=== PATIENT | female | born 1955 | race Caucasian/White ===

== ENCOUNTER 2018-04-20 06:37 | Day surgery (SDC) | payer BC ==
[~2018-04-20 06:37] MED LIST: KETOROLAC TROMETHAMINE 0.45% 4 DROP/0.4 ML DROPERETTE OS PRN
[2018-04-20] MEDS ORDERED: MIDAZOLAM 2 MG/2 ML INJ ONE (06:48)
[2018-04-20] MEDS: BESIFLOXACIN HCL 0.6% OPH SUSP 5 ML BOTTLE OS PRN ×3 (06:56→08:21)
[2018-04-20] MEDS: TETRACAINE HCL 0.5% OPH SOLN 4 ML OS PRN ×3 (06:56→07:54)
[2018-04-20] MEDS: CYCLOPENTOLATE 0.2%/PHENYLEPHRINE 1% OPH SOLN 2 ML OS PRN ×3 (06:56→07:09)
[2018-04-20] MEDS: TROPICAMIDE 1% OPH SOLN 3 ML OS PRN ×3 (06:56→07:09)
[2018-04-20] MEDS ORDERED: EPINEPHRINE INJ/PF 1 MG/1 ML AMPULE ONE (07:13)
[2018-04-20] MEDS ORDERED: LIDOCAINE 1% INJ-PF (10 MG/ML) 30 ML SDV ONE (07:14)
[2018-04-20] MEDS ORDERED: CHONDR SU A NA/HYALUR INTRAOC KIT (SURGICARE) ONE (07:14)
[2018-04-20] MEDS ORDERED: LIDOCAINE 1%/PHENYLEPHRINE 1.5% 1 ML VIAL ONE (07:33)
--- NOTE | 2018-04-20 19:37 | [facility] OPERATIVE REPORT E ---
[facility] Operative Report NAME: JOSELINE TORRES AGE: 62Y DATE OF SURGERY: 04/20/2018 ROOM: PREOPERATIVE DIAGNOSIS: CATARACT LEFT EYE. POSTOPERATIVE DIAGNOSIS: CATARACT LEFT EYE. OPERATION: Cataract extraction with intraocular lens implant of the left eye with a toric multifocal lens. SURGEON: BINA HUERTA M.D. ANESTHESIA: Topical. COMPLICATIONS: None. ESTIMATED BLOOD LOSS: None. PROCEDURE: After appropriate consent was obtained and calculations made, the patient was brought back to the operating room where the patient was prepped and draped in sterile fashion. A lid speculum was placed and attention was directed to a paracentesis where a paracentesis blade made a small incision. Viscoelastic was then used to inflate the anterior chamber. Next a 2.4 mm incision was made with the paracentesis blade. A continuous capsulorhexis forceps of approximately 5 mm was done using a cystitome and capsulorhexis forceps. Hydrodissection was carried out to make the lens freely mobile and then a divide and conquer technique was used to remove the lens with a CDE of approximately 2.68. Following this, the remaining cortical material was removed with irrigation/aspiration. After this the patient was then again marked. The marking procedure started in the preoperative holding area where 180 and 0 was marked with a marker. Now that the patient was in the operating room a 360-degree marker was used to karina the axis at approximately 105 degrees and a toric lens of 10.5 diopters [id number] rotated to 105 degrees was injected into the bag after filling with viscoelastic and rotating into proper position. The I/A was used to remove the viscoelastic material and the toric lens appeared to be appropriately aligned. the wound was raulito negative . Besivance was instilled in the eye and a rigid sheild placed.The patient returned to postoperative recovery in stable condition. DICTATING PHYSICIAN: BINA HUERTA M.D. [id number] [id number] PHY#: [id number] ID: [id number] JOB#: [id number] ACCT: [id number] cc:BINA HUERTA M.D. > MTDD
--- NOTE | 2018-04-20 19:42 | [facility] DISCHARGE SUMMARY E ---
[facility] Discharge Summary NAME: JOSELINE TORRES AGE: 62Y ADMITTED: 04/20/2018 DISCHARGED: This is a 62-year-old patient who underwent cataract extraction of the left eye. DIAGNOSIS: Cataract, left eye. She underwent surgery because she was having trouble seeing road signs. She should be on a regular diet. No bending at the waist, no heavy lifting. She should use her Besivance, Durezol, and Prolensa at 3:00 p.m. and 8:00 p.m., and sleep with a rigid shield. I will see her for her 1-day postop tomorrow. DICTATING PHYSICIAN: BINA HUETRA M.D. [id number] [id number] PHY#: [id number] ID: [id number] JOB#: [id number] ACCT: [id number] cc:BINA HUERTA M.D. >
== END 2018-04-20 08:58 | disposition home or self-care (01) ==
LOC: SC 06:37
PROVIDERS: ATTEND Internal Medicine
DX: H25.813 Combined forms of age-related cataract, bilateral (principal); H57.03 Miosis; H47 Other disorders of optic [2nd] nerve and visual pathways; H40.012 Open angle with borderline findings, low risk, left eye; H52.4 Presbyopia
CPT/HCPCS: 66984; V2787; J2250; J3490 ×2; J0171; J2370; 142

== ENCOUNTER 2018-05-11 07:54 | Day surgery (SDC) | payer BC ==
[~2018-05-11 07:54] MED LIST changes: +KETOROLAC TROMETHAMINE 0.45% 4 DROP/0.4 ML DROPERETTE OD PRN; -KETOROLAC TROMETHAMINE 0.45% 4 DROP/0.4 ML DROPERETTE OS PRN
[2018-05-11] MEDS ORDERED: LIDOCAINE 1% INJ-PF (10 MG/ML) 30 ML SDV ONE (08:19)
[2018-05-11] MEDS ORDERED: CHONDR SU A NA/HYALUR INTRAOC KIT (SURGICARE) ONE (08:19)
[2018-05-11] MEDS ORDERED: EPINEPHRINE INJ/PF 1 MG/1 ML AMPULE ONE (08:19)
[2018-05-11] MEDS: TROPICAMIDE 1% OPH SOLN 3 ML OD PRN ×3 (08:29→08:49)
[2018-05-11] MEDS: CYCLOPENTOLATE 0.2%/PHENYLEPHRINE 1% OPH SOLN 2 ML OD PRN ×3 (08:29→08:49)
[2018-05-11] MEDS: BESIFLOXACIN HCL 0.6% OPH SUSP 5 ML BOTTLE OD PRN ×4 (08:29→09:36)
[2018-05-11] MEDS: TETRACAINE HCL 0.5% OPH SOLN 4 ML OD PRN ×3 (08:30→09:06)
[2018-05-11] MEDS ORDERED: MIDAZOLAM 2 MG/2 ML INJ ONE (08:53)
[2018-05-11] MEDS ORDERED: FENTANYL CITRATE INJ/PF 100 MCG/2 ML AMPUL ONE (08:53)
[2018-05-11] MEDS ORDERED: LIDOCAINE 1%/PHENYLEPHRINE 1.5% 1 ML VIAL ONE (09:41)
--- NOTE | 2018-05-11 19:12 | [facility] DISCHARGE SUMMARY E ---
[facility] Discharge Summary NAME: JOSELINE TORRES AGE: 62Y ADMITTED: 05/11/2018 DISCHARGED: This is a 62-year-old female who underwent cataract extraction of the right eye. DIAGNOSIS: Cataract right eye. She underwent surgery because she was having difficulty with increased glare. She should be on a regular diet. No bending at the waist and no heavy lifting. She should use her Besivance, Prolensa, and Durezol at 3:00 p.m. and 8:00 p.m. and sleep with a rigid shield. I will see her for her 1-day postop tomorrow. DICTATING PHYSICIAN: BINA HUERTA M.D. [id number] [id number] PHY#: [id number] ID: [id number] JOB#: [id number] ACCT: [id number] cc:BINA HUERTA M.D. >
--- NOTE | 2018-05-11 19:13 | [facility] OPERATIVE REPORT E ---
[facility] Operative Report NAME: JOSELINE TORRES AGE: 62Y DATE OF SURGERY: 05/11/2018 ROOM: PREOPERATIVE DIAGNOSIS: CATARACT, RIGHT EYE. POSTOPERATIVE DIAGNOSIS: CATARACT, RIGHT EYE. OPERATION: Cataract extraction with insertion of an IOL of the right eye. SURGEON: BINA HUERTA M.D. ANESTHESIA: Topical. PROCEDURE: After obtaining appropriate consent, the patient's right eye was prepped and draped in sterile fashion as well as the surgeon in a sterile manner and cataract surgery was started. First a paracentesis blade was used to make a side-port incision. Viscoelastic was used to inflate the anterior chamber. Next a 2.4 mm incision was made with a 2.4 mm blade, clear corneal temporally. A continuous capsulorrhexis was made using a cystotome and Utrata forceps. Following this hydrodissection was carried out to make the lens fully loose and mobile and it was rotated 90 degrees. Following this, a gtdodh-ovn-upshdfp technique was used to phacoemulsify the lens with a CDE of 8.69. The remaining cortex was removed with irrigation/aspiration. Provisc was instilled into the capsular bag to inflate the bag. A SN60WF, 6.0 diopter lens was placed. The remaining viscoelastic material was removed with irrigation/aspiration. Following this, the incision was found to be watertight. Besivance was instilled into the eye and a protective shield was placed over the eye. The patient returned to the postoperative recovery in stable condition. DICTATING PHYSICIAN: BINA HUERTA M.D. 1217M [id number] PHY#: [id number] ID: [id number] JOB#: [id number] ACCT: [id number] cc:BINA HUERTA M.D. >
== END 2018-05-11 10:10 | disposition home or self-care (01) ==
LOC: SC 07:54
PROVIDERS: ATTEND Internal Medicine
DX: H25.811 Combined forms of age-related cataract, right eye (principal); H57.03 Miosis; Z96.1 Presence of intraocular lens
CPT/HCPCS: 66984; J2250; J3490 ×2; J0171; J3010; J2370; 142